=== PATIENT | male | born 1975 | race Asian ===

== ENCOUNTER 2016-12-09 02:02 | Emergency (ER) | payer OTHER ==
[~2016-12-09] VITALS: Ht 162.6 cm; Wt 77.1 kg
[2016-12-09] MEDS: IV NORMAL SALINE 1,000ML 1,000 ML IV SCH (02:20)
--- NOTE | 2016-12-09 02:22 | PHYS DOC ---
Past History Past Medical History: Hypertension Additional Past Medical Histor: Gout Additional Past Surgical Histo: Left ankle ORIF Smoking: Non-smoker Adult General Chief Complaint Chief Complaint: FLANK PAIN HPI HPI Patient is a 41 year old male who presents with right flank pain. Started yesterday and then worsened tonight. No nausea or vomiting. no diarrhea. No testicular pain or swelling. Pain is right flank and wraps around to right front. Had left ORIF ankle 4 weeks ago approx. NO chest pain or SOA. No respiratory complaints. Review of Systems Review of Systems Constitutional: Denies fever or chills Eyes: Denies change in visual acuity, redness, or eye pain HENT: Denies nasal congestion or sore throat Respiratory: Denies cough or shortness of breath Cardiovascular: No chest pain. GI: Denies abdominal pain, nausea, vomiting, bloody stools or diarrhea : Denies dysuria or some hematuria. Right flank pain Musculoskeletal: Denies back pain or joint pain. left foot in boot. Integument: Denies rash or skin lesions Neurologic: Denies headache, focal weakness or sensory changes Physical Exam Physical Exam Constitutional: Well developed, well nourished, moaning in pain, non-toxic appearance. HENT: Normocephalic, atraumatic, bilateral external ears normal, oropharynx moist, no oral exudates, nose normal. Eyes: PERRLA, EOMI, conjunctiva normal, no discharge. Neck: Normal range of motion, no tenderness, supple, no stridor. Cardiovascular:Heart rate regular rhythm, no murmur Lungs & Thorax: Bilateral breath sounds clear to auscultation Abdomen: Bowel sounds normal, soft, no tenderness, no masses, no pulsatile masses. Skin: Warm, dry, no erythema, no rash. Back: No tenderness, no CVA tenderness. Extremities: No tenderness, no cyanosis, no clubbing, ROM intact, no edema. Neurologic: Alert and oriented X 3, normal motor function, normal sensory function, no focal deficits noted. Psychologic: Affect normal, judgement normal, mood normal. Current Patient Data Vital Signs Vital Signs Date Time Temp Pulse Resp B/P (MAP) Pulse Ox O2 Delivery O2 Flow Rate FiO2 12/09/16 02:05 97.7 22 98 Room Air Vital Signs Date Time Temp Pulse Resp B/P (MAP) Pulse Ox O2 Delivery O2 Flow Rate FiO2 12/09/16 02:05 97.7 22 98 Room Air Lab Results Laboratory Tests Test 12/09/16 02:08 White Blood Count 7.8 x10^3/uL (4.0-11.0) Red Blood Count 4.48 x10^6/uL (4.30-5.70) Hemoglobin 13.4 g/dL (13.0-17.5) Hematocrit 40.4 % (39.0-53.0) Mean Corpuscular Volume 90 fL (79-100) Mean Corpuscular Hemoglobin 30 pg (25-35) Mean Corpuscular Hemoglobin Concent 33 g/dL (31-37) Red Cell Distribution Width 13.9 % (11.5-14.5) Platelet Count 213 x10^3/uL (140-400) Neutrophils (%) (Auto) 31 % (31-73) Lymphocytes (%) (Auto) 52 % (24-48) Monocytes (%) (Auto) 11 % (0-9) Eosinophils (%) (Auto) 5 % (0-3) Basophils (%) (Auto) 1 % (0-3) Neutrophils # (Auto) 2.4 x10^3uL (1.8-7.7) Lymphocytes # (Auto) 4.0 x10^3/uL (1.0-4.8) Monocytes # (Auto) 0.9 x10^3/uL (0.0-1.1) Eosinophils # (Auto) 0.4 x10^3/uL (0.0-0.7) Basophils # (Auto) 0.1 x10^3/uL (0.0-0.2) Urine Collection Type Unknown Urine Color Red Urine Clarity Hazy Urine pH 6.0 Urine Specific [place] 1.020 Urine Protein 30 mg/dl (NEG-TRACE) Urine Glucose (UA) Neg mg/dL (NEG) Urine Ketones (Stick) Neg mg/dL (NEG) Urine Blood Large (NEG) Urine Nitrite Neg (NEG) Urine Bilirubin Neg (NEG) Urine Urobilinogen Dipstick 0.2 mg/dL (0.2 mg/dL) Urine Leukocyte Esterase Neg (NEG) Urine RBC >40 /HPF (0-2) Urine WBC Occ /HPF (0-4) Urine Squamous Epithelial Cells Few /LPF Urine Bacteria Few /HPF (0-FEW) Sodium Level 141 mmol/L (136-145) Potassium Level 3.1 mmol/L (3.5-5.1) Chloride Level 105 mmol/L (98-107) Carbon Dioxide Level 31 mmol/L (21-32) Anion Gap 5 (6-14) Blood Urea Nitrogen 15 mg/dL (8-26) Creatinine 1.4 mg/dL (0.7-1.3) Estimated GFR (Cockcroft-Gault) 55.8 Glucose Level 111 mg/dL (70-99) Calcium Level 8.8 mg/dL (8.5-10.1) Radiology/Procedures Radiology/[place] [address] IMAGING REPORT Signed PATIENT: CELINA GOMEZ ACCOUNT: [id number] : 1975 LOCATION: ER AGE: 41 SEX: M EXAM STATUS: REG ER ORD. PHYSICIAN: ELLIOTT AMATO MD REASON: rt flank pain w hematuria PROCEDURE: CT ABDOMEN PELVIS WO CONTRAST PQRS Compliance Statement: One or more of the following individualized dose reduction techniques were utilized for this examination: 1. Automated exposure control 2. Adjustment of the mA and/or kV according to patient size 3. Use of iterative reconstruction technique CT ABDOMEN PELVIS WO CONTRAST Clinical Indication: Severe right flank pain with hematuria today. Comparison: None. Technique: Helical CT imaging of the abdomen and pelvis is performed without IV or oral contrast. Findings: There is right lower lobe atelectasis. Cardiac size normal. Liver, gallbladder, spleen, pancreas, adrenal glands, and abdominal aorta are normal. There are at least 4 nonobstructing left renal calculi, largest measures 3 mm. There is no left hydronephrosis. There are at least 5 nonobstructing right renal calculi, largest measures 5 mm. There is minimal right perinephric stranding. There is mild right hydroureteronephrosis secondary to a calculus measuring 5 mm in the proximal right ureter, image 86. The remainder of the right ureter is decompressed. Stomach unremarkable. Small fat-containing umbilical hernia. No dilated small bowel. The appendix is normal. No colon wall thickening. No abdominal adenopathy or free fluid. Urinary bladder is not well distended, otherwise normal. Prostate size normal. No pelvic free fluid. No acute bone abnormality. IMPRESSION: 1. Mild right obstructive uropathy secondary to a 5 mm calculus in the proximal right ureter. 2. Bilateral nonobstructing renal calculi. 3. Right lower lobe atelectasis. Electronically signed by: Ravi Mendieta MD (12/09/2016 3:00 AM) [facility] DICTATED AND SIGNED BY: RAVI MENDIETA MD DATE: 12/09/16254 CC: ELLIOTT AMATO MD; NON,STAFF ~ Course & Med Decision Making Course & Med Decision Making Evaluated patient for kidney stone. IV NS, IV morphine for pain. At 0245 AM: lab back and reviewed. CT done and awaiting radiology report. At 0310 AM: CT report back. He has a stone right proximal ureter. Flomax, Rocephin IV; Dilaudid ; Toradol 30 IV. At 0400 AM: patient much improved and resting comfortably. No urology on staff here or at [facility]. Recommended [facility] for follow up or [facility]. I have spoken with the patient and/or caregivers. I have explained the patient' s condition, diagnosis and treatment plan based on the information available to me at this time. I have answered the patient's and/or caregiver's questions and addressed any concerns. The patient and/or caregivers have as good an understanding of the patient's diagnosis, condition and treatment plan as can be expected at this point. The patient's condition is stable and appropriate for discharge from the emergency department. The patient will pursue further outpatient evaluation with the primary care physician or other designated or consulting physician as outlined in the discharge instructions. The patient and/or caregivers are agreeable to this plan of care and follow-up instructions have been explained in detail. The patient and/or caregivers have received these instructions in written format and have expressed an understanding of the discharge instructions. The patient and/or caregivers are aware that any significant change in condition or worsening of symptoms should prompt an immediate return to this or the closest emergency department or a call to 911. Ashly Disclaimer Dragmich Disclaimer This chart was dictated in whole or in part using Voice Recognition software in a busy, high-work load, and often noisy Emergency Department environment. It may contain unintended and wholly unrecognized errors or omissions. Departure Departure: Impression: Primary Impression: Right kidney stone Additional Impression: Acute right flank pain Disposition: HOME, SELF-CARE Condition: STABLE Referrals: NON,STAFF (PCP) Patient Instructions: Diet for Kidney Stones, Kidney Stones Additional Instructions: THERE ARE NO UROLOGISTS PRESENTLY AT [facility] OR [place]. YOU CAN CALL DR TONY THORNTON AT [facility]; [address], [place] [address] FOR FOLLOW UP Scripts Oxycodone Hcl/Acetaminophen (PERCOCET 5-325 MG TABLET) 1 Each Tablet 1-2 TAB PO Q4-6HRS, #30 TAB Prov: ELLIOTT AMATO MD 12/09/16 Ondansetron (ZOFRAN ODT) 8 Mg Tab.rapdis 8 MG PO PRN Q8MIN Y for VOMITING, #14 Prov: ELLIOTT AMATO MD 12/09/16 Ciprofloxacin Hcl (CIPROFLOXACIN HCL) 500 Mg Tablet 1 TAB PO BID, #14 TAB Prov: ELLIOTT AMATO MD 12/09/16 Tamsulosin Hcl (FLOMAX) 0.4 Mg Cap.er.24h 0.4 MG PO DAILY, #10 CAP.SR Prov: ELLIOTT AMATO MD 12/09/16 Problem Qualifiers ELLIOTT AMATO MD Dec 09, 2016 02:22
[2016-12-09] MEDS ORDERED: fentaNYL PF 100 MCG/2 ML VIAL IV PRN (02:30)
[2016-12-09] MEDS: ONDANSETRON PF 4 MG/2 ML VIAL. IV ONE ×2 (02:30→03:30)
[2016-12-09 02:33] LABS: BASO # 0.1 x10^3/uL (0.0-0.2); BASO % 1 % (0-3); EOS # 0.4 x10^3/uL (0.0-0.7); EOS % 5 % (0-3); HEMATOCRIT 40.4 % (39.0-53.0); HEMOGLOBIN 13.4 g/dL (13.0-17.5); LYMPH % 52 % (24-48); MEAN CORPUSCULAR HEMOGLOBIN 30 pg (25-35); MEAN CORPUSCULAR HGB CONC 33 g/dL (31-37); MEAN CORPUSCULAR VOLUME 90 fL (79-100); MONO # 0.9 x10^3/uL (0.0-1.1); MONO % 11 % (0-9); NEUT # 2.4 x10^3uL (1.8-7.7); NEUT % 31 % (31-73); PLATELET COUNT 213 x10^3/uL (140-400); RED BLOOD COUNT 4.48 x10^6/uL (4.30-5.70); RED CELL DISTRIBUTION WIDTH 13.9 % (11.5-14.5); WHITE BLOOD COUNT 7.8 x10^3/uL (4.0-11.0)
[2016-12-09] MEDS: MORPHINE SULFATE 2 MG/ML DISP.SYRIN. IV/SQ PRN (02:36)
[2016-12-09 02:37] LABS: CALCIUM 8.8 mg/dL (8.5-10.1); CREATININE 1.4 mg/dL (0.7-1.3); GFR 55.8; POTASSIUM 3.1 mmol/L (3.5-5.1)
[2016-12-09 02:42] LABS: BACTERIA,URINE FEW /HPF (0-FEW); BILIRUBIN,URINE NEG (NEG); CLARITY,URINE HAZY; COLOR,URINE RED; GLUCOSE,URINE NEG (NEG); NITRITE,URINE NEG (NEG); RBC,URINE >40 /HPF (0-2); SQUAMOUS EPITHELIAL CELL,UR FEW /LPF; UROBILINOGEN,URINE 0.2 mg/dL (0.2 mg/dL); WBC,URINE OCC /HPF (0-4)
--- NOTE | 2016-12-09 03:03 | RAD ---
PQRS Compliance Statement: One or more of the following individualized dose reduction techniques were utilized for this examination: 1. Automated exposure control 2. Adjustment of the mA and/or kV according to patient size 3. Use of iterative reconstruction technique CT ABDOMEN PELVIS WO CONTRAST Clinical Indication: Severe right flank pain with hematuria today. Comparison: None. Technique: Helical CT imaging of the abdomen and pelvis is performed without IV or oral contrast. Findings: There is right lower lobe atelectasis. Cardiac size normal. Liver, gallbladder, spleen, pancreas, adrenal glands, and abdominal aorta are normal. There are at least 4 nonobstructing left renal calculi, largest measures 3 mm. There is no left hydronephrosis. There are at least 5 nonobstructing right renal calculi, largest measures 5 mm. There is minimal right perinephric stranding. There is mild right hydroureteronephrosis secondary to a calculus measuring 5 mm in the proximal right ureter, image 86. The remainder of the right ureter is decompressed. Stomach unremarkable. Small fat-containing umbilical hernia. No dilated small bowel. The appendix is normal. No colon wall thickening. No abdominal adenopathy or free fluid. Urinary bladder is not well distended, otherwise normal. Prostate size normal. No pelvic free fluid. No acute bone abnormality. IMPRESSION: 1. Mild right obstructive uropathy secondary to a 5 mm calculus in the proximal right ureter. 2. Bilateral nonobstructing renal calculi. 3. Right lower lobe atelectasis. Electronically signed by: Ravi Mendieta MD (12/09/2016 3:00 AM) [facility]
[2016-12-09] MEDS: IV NORMAL SALINE 1,000ML 1,000 ML IV ONE (03:15)
[2016-12-09] MEDS ORDERED: CIPR500T PO (03:16)
[2016-12-09] MEDS ORDERED: TAMS0.4C97 PO (03:16)
[2016-12-09] MEDS ORDERED: OXYC-323 PO (03:18)
[2016-12-09] MEDS ORDERED: ONDA8TAB12 PO (03:18)
[2016-12-09] MEDS ORDERED: IV NORMAL SALINE 50ML 50 ML ONE (03:19)
[2016-12-09] MEDS ORDERED: cefTRIAXone SODIUM 1 GM VIAL IV ONE (03:20)
[2016-12-09] MEDS: KETOROLAC 30 MG/ML VIAL. IV ONE (03:30)
[2016-12-09] MEDS: TAMSULOSIN 0.4 MG CAP.ER.24H. PO ONE (03:30)
[2016-12-09] MEDS: HYDROmorphone PF 1 MG/ML DISP.SYRIN IV ONE (03:30)
[2016-12-09 04:08] VITALS: BP 115/76
== END 2016-12-09 04:08 | disposition home or self-care (01) ==
LOC: ER 02:02
DX: N20.2 Calculus of kidney with calculus of ureter (principal); I10 Essential (primary) hypertension; M10.9 Gout, unspecified
CPT/HCPCS: 36415; 74176; 80048; 81001; 85025; 96361; 96365; 96375; 96376; 99285; J0696; J1170; J1885; J2270; J2405; J7030

== ENCOUNTER 2019-10-30 16:12 | Emergency (ER) | payer OTHER ==
[~2019-10-30] VITALS: Ht 162.6 cm; Wt 88.6 kg
[~2019-10-30 16:12] MED LIST: CIPR500T PO; ONDA8TAB12 PO; OXYC1TAB15 PO; TAMS0.4C97 PO
[2019-10-30 16:15] VITALS: BP 154/105
[2019-10-30] MEDS ORDERED: DIPH,PERTUSS(ACELL),TET VAC/PF 0.5 ML SYRINGE. VAX IM ONE (16:30)
[2019-10-30] MEDS ORDERED: NEOMY/BACITR/POLYMYXIN OINT PACKET. TP ONE (16:30)
[2019-10-30] MEDS ORDERED: LIDOCAINE 2%/EPI 1:100,000 20 ML VIAL. IJ ONE (16:30)
[2019-10-30] MEDS ORDERED: CEPHALEXIN 250 MG CAPSULE PO ONE (16:45)
--- NOTE | 2019-10-30 16:54 | RAD ---
FINGER(S) RIGHT 10/30/2019 4:25 PM INDICATION: Right thumb laceration with table saw. COMPARISON: None available. TECHNIQUE: 3 views of the right first digit are provided. FINDINGS/ IMPRESSION: Soft tissue laceration of the first digit extending to the bone with comminuted fracture of the distal tuft of the first digit. No intra-articular extension. Bone mineralization is within normal limits. Electronically signed by: Lakisha Castelan MD (10/30/2019 4:51 PM) [email or web address]
[2019-10-30] MEDS ORDERED: CEPH-264 PO (17:10)
[2019-10-30] MEDS ORDERED: HYDR-3165 PO (17:10)
--- NOTE | 2019-10-30 17:10 | PHYS DOC ---
Past History Past Medical History: Hypertension Additional Past Medical Histor: Gout Additional Past Surgical Histo: Left ankle ORIF Smoking: Non-smoker Alcohol Use: None Drug Use: None General Adult EDM: Chief Complaint: LACERATION/AVULSION HPI: HPI: Patient is a [age] year old [sex] who presents with [] Review of Systems: Review of Systems: Constitutional: Denies fever or chills Eyes: Denies redness or eye pain HENT: Denies nasal congestion or sore throat Respiratory: Denies cough or shortness of breath Cardiovascular: Denies chest pain or palpitations GI: Denies abdominal pain, nausea, or vomiting : Denies dysuria or hematuria Musculoskeletal: Denies back pain or joint pain Integument: Denies rash or skin lesions Neurologic: Denies headache, focal weakness or sensory changes Complete systems were reviewed and found to be within normal limits, except as documented in this note. Current Medications: Current Meds: Current Medications Medications (Trade) Dose Ordered Sig/Kenneth Start Time Stop Time Status Last Admin Dose Admin Cephalexin HCl (Keflex) 500 mg 1X ONCE 10/30/19 16:45 10/30/19 16:46 DC Diphtheria/ Pertussis/Tetanus Vacc (ADACEL TDap SYRINGE) 0.5 ml ONCE ONCE 10/30/19 16:30 10/30/19 16:31 DC 10/30/19 16:42 0.5 ML Lidocaine/ Epinephrine (Xylocaine 2%-Epi 1:100,000) 20 ml 1X ONCE 10/30/19 16:30 10/30/19 16:31 DC 10/30/19 16:40 20 ML Neomycin/ Polymyxin/ Bacitracin (Triple Antibiotic Ointment) 1 pkt 1X ONCE 10/30/19 16:30 10/30/19 16:31 DC 10/30/19 16:41 1 PKT Allergies: Allergies: Allergies Coded Allergies Type Severity Reaction Last Updated Verified No Known Drug Allergies 12/09/16 No Physical Exam: PE: Constitutional: Well developed, well nourished, no acute distress, non-toxic appearance HENT: Normocephalic, atraumatic, oropharynx moist Eyes: PERRL, EOMI, conjunctiva normal, no discharge Neck: Normal range of motion, no tenderness, supple Cardiovascular: Heart rate normal, regular rhythm Lungs & Thorax: Bilateral breath sounds clear to auscultation, no wheezing Abdomen: Soft, no tenderness Skin: Warm, dry, no erythema, no rash Back: No tenderness, no CVA tenderness Extremities: No tenderness, ROM intact, no edema Neurologic: Alert and oriented X 3, normal motor function, normal sensory function, no focal deficits noted Psychologic: Affect normal, judgment normal Current Patient Data: Vital Signs: Vital Signs Date Time Temp Pulse Resp B/P (MAP) Pulse Ox O2 Delivery O2 Flow Rate FiO2 10/30/19 16:15 98.3 92 18 154/105 (121) 96 Room Air EKG: EKG: [] Radiology/Procedures: Radiology/Procedures: PROCEDURE: FINGER(S) RIGHT FINGER(S) RIGHT 10/30/2019 4:25 PM INDICATION: Right thumb laceration with table saw. COMPARISON: None available. TECHNIQUE: 3 views of the right first digit are provided. FINDINGS/ IMPRESSION: Soft tissue laceration of the first digit extending to the bone with comminuted fracture of the distal tuft of the first digit. No intra-articular extension. Bone mineralization is within normal limits. Electronically signed by: Lakisha Castelan MD (10/30/2019 4:51 PM) [facility] Course & Med Decision Making: Course & Med Decision Making Pertinent Imaging studies reviewed. (See chart for details) Patient stable for discharge with outpatient follow-up with PCP/orthopedics. Orthopedic referral provided. Discussed findings and plan with patient, who acknowledges understanding and agreement. Ashly Disclaimer: Ashly Disclaimer: This electronic medical record was generated, in whole or in part, using a voice recognition dictation system. Splinting Splinting : Location: right thumb Pre-Made Type: metal (finger splint) Pre-Proc Neuro Vasc Exam: normal Post-Proc Neuro Vasc Exam: normal, unchanged from pre-exam Laceration/Wound Repair Laceration/Wound Repair : Wound Location: upper extremity (right distal thumb) Wound's Depth, Shape: irregular, flap, contused tissue Wound Length (cm): 3 Wound Explored: foreign body removed (small bone chips removed, sawdust removed) Irrigated w/ Saline (ccs): 200 Anesthesia: Lidocaine w/ Epi (2%) Volume Anesthetic (ccs): 5 Wound Debrided: moderate Wound Repaired With: sutures Suture Size/Type: 5:0, nylon Sterile Dressing Applied?: Yes Splint Applied?: Yes Progress Verbal consent obtained. Time out performed. Hand hygiene utilized. Wound cleaned with ChloraPrep. Anesthesia obtained via a 25-gauge hypodermic needle with (5) mL's of lidocaine 2% with epinephrine via 4 nerve digital block to right thumb. Copious irrigation performed. Wound well approximated with 5-0 Nylon simple interrupted sutures x . Patient tolerated procedure well and without difficulty. Empiric antibiotic ointment applied prior to sterile dressing. Aluminium splint applied for protection. Departure Departure: Impression: Primary Impression: Laceration of right thumb Qualified Codes: S61.121A - Laceration with foreign body of right thumb with damage to nail, initial encounter Additional Impression: Open fracture of tuft of distal phalanx of right thumb Disposition: HOME/RESIDENCE PRIOR TO ADM Condition: STABLE Referrals: ENDER ALMAGUER (PCP) AUNG MG MD Patient Instructions: Laceration Care, Adult, [id number], Thumb Fracture Additional Instructions: Do not soak your wound. You may shower. Clean wound daily with soap and water. Change dressing 2 times daily. Use over the counter antibiotic ointment with each dressing change. Sutures need to be removed in 7-10 days. Present to your orthopedic physician, family doctor, or local urgent care for removal. You may also present to the ED but it will be an additional visit/charge. After suture removal you may use Vitamin E ointment to soften the wound and prevent scarring. Scripts Cephalexin (KEFLEX) 500 Mg Capsule 1 CAP PO QID for Open Tuft Fx for 7 Days, #28 CAP 0 Refills Prov: LAMAR ROTHMAN DO 10/30/19 Hydrocodone Bit/Acetaminophen (NORCO 5-325 TABLET) 1 Each Tablet 0.5-1 TAB PO Q6HRS PRN for PAIN, #10 TAB Prov: LAMAR ROTHMAN DO 10/30/19 LAMAR ROTHMAN DO Oct 30, 2019 17:10
[2019-10-30] MEDS ORDERED: GELATIN SPONGE SIZE 12-7MM SPONGE. ONE (17:42)
== END 2019-10-30 17:50 | disposition home or self-care (01) ==
LOC: ER 16:12
DX: S62.521A Displaced fracture of distal phalanx of right thumb, initial encounter for closed fracture (principal); I10 Essential (primary) hypertension; W29.8XXA Contact with other powered hand tools and household machinery, initial encounter; Y93.89 Activity, other specified; Y92.89 Other specified places as the place of occurrence of the external cause; Y99.8 Other external cause status
CPT/HCPCS: 12042; 73140; 90471; 90715; 99284

== ENCOUNTER 2020-05-22 11:24 | Emergency (ER) | payer OTHER ==
[~2020-05-22] VITALS: Ht 162.6 cm; Wt 88.6 kg
[~2020-05-22 11:24] MED LIST changes: +CEPH-264 PO; -CIPR500T PO; +CIPR500T2 PO; +HYDR-3165 PO
--- NOTE | 2020-05-22 12:29 | RAD ---
EXAM: XR CHEST 1V 05/22/2020 12:03 PM CLINICAL INDICATION: Chest pain COMPARISON: None TECHNIQUE: AP view of the chest FINDINGS: The heart and mediastinum are normal. The right hemidiaphragm is elevated. Right perihilar nodular opacity measuring 2 cm is likely due to accentuation of pulmonary vascularity due to right l eleni volume loss. Lungs are otherwise clear. There is no pleural effusion or pneumothorax. No acute os seous abnormality. IMPRESSION: 1. No acute abnormality. 2. 2 cm nodular opacity in the right hilar region is likely due to to accentuation of pulmonary vascu larity from elevated right hemidiaphragm and right lung volume loss. Pulmonary nodule not entirely ex cluded. CT of the chest could be obtained to further evaluate. Electronically signed by: Emerald Kidd MD (05/22/2020 12:26 PM) [id number]
[2020-05-22 12:31] LABS: BASO % 1 % (0-3); EOS # 0.2 x10^3/uL (0.0-0.7); EOS % 3 % (0-3); HEMATOCRIT 45.2 % (39.0-53.0); HEMOGLOBIN 14.8 g/dL (13.0-17.5); LYMPH # 2.5 x10^3/uL (1.0-4.8); LYMPH % 37 % (24-48); MEAN CORPUSCULAR HEMOGLOBIN 30 pg (25-35); MEAN CORPUSCULAR HGB CONC 33 g/dL (31-37); MEAN CORPUSCULAR VOLUME 90 fL (79-100); MONO # 0.5 x10^3/uL (0.0-1.1); MONO % 8 % (0-9); NEUT # 3.4 x10^3uL (1.8-7.7); NEUT % 51 % (31-73); PLATELET COUNT 223 x10^3/uL (140-400); RED BLOOD COUNT 5.01 x10^6/uL (4.30-5.70); RED CELL DISTRIBUTION WIDTH 13.3 % (11.5-14.5); WHITE BLOOD COUNT 6.6 x10^3/uL (4.0-11.0)
[2020-05-22 12:41] LABS: CALCIUM 9.1 mg/dL (8.5-10.1); CREATININE 1.4 mg/dL (0.7-1.3); GFR 54.8; POTASSIUM 3.9 mmol/L (3.5-5.1)
[2020-05-22 12:54] LABS: MAGNESIUM 1.9 mg/dL (1.8-2.4); TOTAL BILIRUBIN 0.6 mg/dL (0.2-1.0); TOTAL PROTEIN 8.1 g/dL (6.4-8.2)
[2020-05-22] MEDS ORDERED: IV NORMAL SALINE 1,000ML 1,000 ML IV ONE (13:45)
[2020-05-22] MEDS ORDERED: IOHEXOL 300 MG/ML 75 ML VIAL. IV ONE (14:00)
--- NOTE | 2020-05-22 14:24 | RAD ---
EXAM: CT Chest with IV contrast CLINICAL HISTORY: chest pain, abnormal chest xray today COMPARISON: None. TECHNIQUE: CT of the chest following the administration of intravenous contrast. Axial, coronal and s agittal reformatted images were generated. ---PQRS compliance statement - One or more of the following individualized dose reduction techniques were utilized for this study: 1. Automated exposure control 2. Adjustment of the mA and/or kV according to patient size 3. Use of iterative reconstruction technique--- FINDINGS: CHEST: Heart is not enlarged. No pericardial effusion. No pleural effusion or pneumothorax. Thyroid is unremarkable. No mediastinal or hilar lymphadenopathy. No axillary lymphadenopathy. The ab normality seen in the right hilum on prior chest radiograph corresponds to prominent vasculature. Groundglass opacities right lower lobe likely atelectasis or developing consolidation. Visualized Upper abdomen: Hepatic hypoattenuation likely fatty liver. Mild elevation right hemidiaph ragm. Bones: No aggressive osseous lesion is seen. IMPRESSION: 1. The abnormality seen in the right hilum on prior chest radiograph corresponds to prominent vascul ature. 2. Groundglass opacities right lower lobe likely atelectasis or developing consolidation. 3. Hepatic hypoattenuation, likely fatty liver. Electronically signed by: Hay Amaro MD (05/22/2020 2:22 PM) [id number]
--- NOTE | 2020-05-22 15:23 | PHYS DOC ---
Past History Past Medical History: Hypertension Additional Past Medical Histor: Gout Additional Past Surgical Histo: Left ankle ORIF Smoking: Non-smoker Alcohol Use: None Drug Use: None General Adult EDM: Chief Complaint: CHEST PAIN HPI: HPI: Patient is a 45-year-old male who present to ER due to substernal chest pain that started this morning. Pain was aching in nature, worse with cough or taking a deep breath. Patient denies any radiation anywhere, denies any numbness or weakness anywhere. Patient denies any cough or fever, no trouble breathing. Patient denies any abdominal pain, no nausea vomiting. Patient had no diabetic, no history of blood clot disorder, no recent travel or operation. Patient denies any family history of coronary disease. Patient does have history of hypertension, patient is not a smoker, no history of cholesterol problem. Review of Systems: Review of Systems: Constitutional: Denies fever or chills Eyes: Denies change in visual acuity HENT: Denies nasal congestion or sore throat Respiratory: Denies cough or shortness of breath Cardiovascular: Positive for chest pain, no edema GI: Denies abdominal pain, nausea, vomiting, bloody stools or diarrhea : Denies dysuria Musculoskeletal: Denies back pain or joint pain Integument: Denies rash Neurologic: Denies headache, focal weakness or sensory changes Endocrine: Denies polyuria or polydipsia Lymphatic: Denies swollen glands Psychiatric: Denies depression or anxiety Current Medications: Current Meds: Current Medications Medications (Trade) Dose Ordered Sig/Kenneth Start Time Stop Time Status Last Admin Dose Admin Iohexol (Omnipaque 300 Mg/ml) 75 ml 1X ONCE 05/22/20 14:00 05/22/20 14:01 DC Sodium Chloride 1,000 ml @ 1,000 mls/hr 1X ONCE 05/22/20 13:45 05/22/20 14:44 DC 05/22/20 13:49 1,000 MLS/HR Allergies: Allergies: Allergies Coded Allergies Type Severity Reaction Last Updated Verified No Known Drug Allergies 12/09/16 No Physical Exam: PE: Constitutional: Well developed, well nourished, no acute distress, non-toxic appearance. [] HENT: Normocephalic, atraumatic, bilateral external ears normal, oropharynx moist, no oral exudates, nose normal. [] Eyes: PERRLA, EOMI, conjunctiva normal, no discharge. [] Neck: Normal range of motion, no tenderness, supple, no stridor. [] Cardiovascular:Heart rate regular rhythm, no murmur [] Lungs & Thorax: Bilateral breath sounds clear to auscultation [] Abdomen: Bowel sounds normal, soft, no tenderness, no masses, no pulsatile masses. [] Skin: Warm, dry, no erythema, no rash. [] Back: No tenderness, no CVA tenderness. [] Extremities: No tenderness, no cyanosis, no clubbing, ROM intact, no edema. [] Neurologic: Alert and oriented X 3, normal motor function, normal sensory func tion, no focal deficits noted. [] Psychologic: Affect normal, judgement normal, mood normal. [] Current Patient Data: Labs: Laboratory Tests Test 05/22/20 12:10 White Blood Count 6.6 x10^3/uL (4.0-11.0) Red Blood Count 5.01 x10^6/uL (4.30-5.70) Hemoglobin 14.8 g/dL (13.0-17.5) Hematocrit 45.2 % (39.0-53.0) Mean Corpuscular Volume 90 fL (79-100) Mean Corpuscular Hemoglobin 30 pg (25-35) Mean Corpuscular Hemoglobin Concent 33 g/dL (31-37) Red Cell Distribution Width 13.3 % (11.5-14.5) Platelet Count 223 x10^3/uL (140-400) Neutrophils (%) (Auto) 51 % (31-73) Lymphocytes (%) (Auto) 37 % (24-48) Monocytes (%) (Auto) 8 % (0-9) Eosinophils (%) (Auto) 3 % (0-3) Basophils (%) (Auto) 1 % (0-3) Neutrophils # (Auto) 3.4 x10^3uL (1.8-7.7) Lymphocytes # (Auto) 2.5 x10^3/uL (1.0-4.8) Monocytes # (Auto) 0.5 x10^3/uL (0.0-1.1) Eosinophils # (Auto) 0.2 x10^3/uL (0.0-0.7) Basophils # (Auto) 0.0 x10^3/uL (0.0-0.2) Sodium Level 139 mmol/L (136-145) Potassium Level 3.9 mmol/L (3.5-5.1) Chloride Level 102 mmol/L (98-107) Carbon Dioxide Level 30 mmol/L (21-32) Anion Gap 7 (6-14) Blood Urea Nitrogen 14 mg/dL (8-26) Creatinine 1.4 mg/dL (0.7-1.3) H Estimated GFR (Cockcroft-Gault) 54.8 BUN/Creatinine Ratio 10 (6-20) Glucose Level 94 mg/dL (70-99) Calcium Level 9.1 mg/dL (8.5-10.1) Magnesium Level 1.9 mg/dL (1.8-2.4) Total Bilirubin 0.6 mg/dL (0.2-1.0) Aspartate Amino Transferase (AST) 24 U/L (15-37) Alanine Aminotransferase (ALT) 50 U/L (16-63) Alkaline Phosphatase 64 U/L (46-116) Troponin I Quantitative < 0.017 ng/mL (0-0.055) RT-Kvo-P-Type Natriuretic Peptide 6 pg/mL (0-124) Total Protein 8.1 g/dL (6.4-8.2) Albumin 4.0 g/dL (3.4-5.0) Albumin/Globulin Ratio 1.0 (1.0-1.7) Lipase 136 U/L (73-393) Vital Signs: Vital Signs Date Time Temp Pulse Resp B/P (MAP) Pulse Ox O2 Delivery O2 Flow Rate FiO2 05/22/20 11:24 98.3 78 18 141/75 (97) 99 EKG: EKG: EKG was done at 1134, heart rate of 88 bpm, normal sinus rhythm, no ST segment elevation. Radiology/Procedures: Radiology/Procedures: [address] [address] IMAGING REPORT Signed PATIENT: COCO GOMEZ: [id number] : 1975 LOCATION: ER AGE: 45 SEX: M EXAM STATUS: REG ER ORD. PHYSICIAN: HAIDER CORDON DO REASON: chest pain, abnormal chest xray today PROCEDURE: CT CHEST W/CONTRAST EXAM: CT Chest with IV contrast CLINICAL HISTORY: chest pain, abnormal chest xray today COMPARISON: None. TECHNIQUE: CT of the chest following the administration of intravenous contrast. Axial, coronal and sagittal reformatted images were generated. ---PQRS compliance statement - One or more of the following individualized dose reduction techniques were utilized for this study: 1. Automated exposure control 2. Adjustment of the mA and/or kV according to patient size 3. Use of iterative reconstruction technique--- FINDINGS: CHEST: Heart is not enlarged. No pericardial effusion. No pleural effusion or pneumothorax. Thyroid is unremarkable. No mediastinal or hilar lymphadenopathy. No axillary lymphadenopathy. The abnormality seen in the right hilum on prior chest radiograph corresponds to prominent vasculature. Groundglass opacities right lower lobe likely atelectasis or developing c onsolidation. Visualized Upper abdomen: Hepatic hypoattenuation likely fatty liver. Mild elevation right hemidiaphragm. Bones: No aggressive osseous lesion is seen. IMPRESSION: 1. The abnormality seen in the right hilum on prior chest radiograph corre sponds to prominent vasculature. 2. Groundglass opacities right lower lobe likely atelectasis or developing consolidation. 3. Hepatic hypoattenuation, likely fatty liver. Electronically signed by: Hay Toney MD (05/22/2020 2:22 PM) [id number] DICTATED AND SIGNED BY: HAY TONEY MD DATE: 05/22/20 1416 CC: ENDER ALMAGUER; HAIDER CORDON DO ~MTH0 [address] [address] IMAGING REPORT Signed PATIENT: CATHERINE GOMEZOUNT: [id number] : 1975 LOCATION: ER AGE: 45 SEX: M EXAM STATUS: REG ER ORD. PHYSICIAN: HAIDER CORDON DO REASON: chest pain PROCEDURE: PORTABLE CHEST 1V EXAM: XR CHEST 1V 05/22/2020 12:03 PM CLINICAL INDICATION: Chest pain COMPARISON: None TECHNIQUE: AP view of the chest FINDINGS: The heart and mediastinum are normal. The right hemidiaphragm is elevated. Right perihilar nodular opacity measuring 2 cm is likely due to accentuation of pulmonary vascularity due to right lung volume loss. Lungs are otherwise clear. There is no pleural effusion or pneumothorax. No acute osseous abnormality. IMPRESSION: 1. No acute abnormality. 2. 2 cm nodular opacity in the right hilar region is likely due to to accentuation of pulmonary vascularity from elevated right hemidiaphragm and right lung volume loss. Pulmonary nodule not entirely excluded. CT of the chest could be obtained to further evaluate. Electronically signed by: Emerald Kidd MD (05/22/2020 12:26 PM) [id number] DICTATED AND SIGNED BY: EMERALD KIDD MD DATE: 05/22/20 1222 CC: ENDER ALMAGUER; HAIDER CORDON DO ~MTH0 0 Heart Score: HEART Score for Chest Pain: HEART Score for Chest Pain Response (Comments) Value History Slighlty/Non-Suspicious 0 ECG Normal 0 Age >45 - < 65 1 Risk Factors 1 or 2 Risk Factors 1 Troponin < Normal Limit 0 Total 2 Risk Factors: Risk Factors: DM, Current or recent (<one month) smoker, HTN, HLP, family history of CAD, obesity. Risk Scores: Score 0 - 3: 2.5% MACE over next 6 weeks - Discharge Home Score 4 - 6: 20.3% MACE over next 6 weeks - Admit for Clinical Observation Score 7 - 10: 72.7% MACE over next 6 weeks - Early Invasive Strategies Course & Med Decision Making: Course & Med Decision Making Pertinent Labs and Imaging studies reviewed. (See chart for details) Patient is a 45-year-old male who presented to ER due to chest pain, EKG and lab work did not show any acute problem. CT scan of the chest show some fatty liver, grab Glaspie on on the right lower lobe, but the patient had no fever cough, no trouble breathing, patient said he does not feel sick. No evidence of infection. Dragon Disclaimer: Ashly Disclaimer: This electronic medical record was generated, in whole or in part, using a voice recognition dictation system. Departure Departure: Impression: Primary Impression: Chest pain Disposition: 01 DC HOME SELF CARE/HOMELESS Condition: STABLE Referrals: ENDER ALMAGUER (PCP) Follow up with your doctor this week for reevaluation. Patient Instructions: Chest Pain (Nonspecific) Additional Instructions: Thank you for visiting our Emergency Department. We appreciate you trusting us with your care. If any additional problems come up don't hesitate to return to visit us. Please follow up with your primary care provider so they can plan additional care if needed and know about the problem that you had. If symptoms worsen come back to the Emergency Department. Any concerning symptoms that start such as chest pain, shortness of air, weakness or numbness on one side of the body, running high fevers or any other concerning symptoms return to the ER. HAIDER CORDON DO May 22, 2020 15:23
--- NOTE | 2020-05-22 15:59 | EKG ---
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
== END 2020-05-22 15:34 | disposition home or self-care (01) ==
LOC: ER 11:24
DX: R07.2 Precordial pain (principal); R05 Cough; I10 Essential (primary) hypertension
CPT/HCPCS: 36415; 71045; 71260; 80053; 83690; 83735; 83880; 84484; 85025; 93005; 96360; 99285; J7030